=== PATIENT | female | born 1970 | race Caucasian/White ===

== ENCOUNTER → 2017-05-05 | Outpatient (CLI) | payer BC ==
--- NOTE | 2017-05-06 10:14 | USB ---
Reason for exam: additional evaluation requested from abnormal screening. History: Patient is nulliparous. US Breast Limited BILAT Right breast ultrasound demonstrates no cystic or solid lesion seen. Left breast ultrasound demonstrates no cystic or solid lesion seen. These results were verbally communicated with the patient and result sheet given to the patient on 05/05/17. ASSESSMENT: Benign, BI-RAD 2 RECOMMENDATION: Routine screening mammogram of both breasts in 1 year.
== END | disposition home or self-care (01) ==
LOC: RADUSWWP 14:51
PROVIDERS: ATTEND Family Medicine
DX: R92.8 Other abnormal and inconclusive findings on diagnostic imaging of breast (principal)

== ENCOUNTER → 2018-03-23 | Outpatient (CLI) | payer BC ==
--- NOTE | 2018-03-24 12:32 | EST ---
EXERCISE STRESS AGE: 48 SEX: F HT: 5'5" WT: 195 PROTOCOL: Saud Stress Test STAGE: I DURATION OF EXERCISE: 5:02 HEART RATE REST: 111 BLOOD PRESSURE REST: 119/77 MAXIMUM HEART RATE ACHIEVED: 161 MAXIMUM BLOOD PRESSURE: 145/64 85% MPHR: 146 100% MPHR: 172 METS: 7.0 INDICATIONS: Chest pain, family history. CLINICAL INFORMATION: STRESS DATA: Pretesting physical examination showed a heart rate of 111, pressure is 119/77 mmHg. Baseline EKG showed sinus mechanism. The patient exercised on the treadmill according to Saud protocol for a total of 5 minutes and achieved 7.0 METS. Max heart rate was 161, which is about 93% of maximum predicted heart rate. Maximum blood pressure was 145/64 mmHg. Clinically, the patient developed some shortness of breath with exertion. The EKG did show about 0.[address]-segment changes. CONCLUSION: 1. Good exercise tolerance. 2. Mild EKG changes in response to exercise, did not meet the criteria for ischemia. MMODL / IJN: [id number] /
== END | disposition home or self-care (01) ==
LOC: RADNMMAIN 10:46
PROVIDERS: ATTEND Family Medicine
DX: R94.31 Abnormal electrocardiogram [ECG] [EKG] (principal); E78.2 Mixed hyperlipidemia; E11.65 Type 2 diabetes mellitus with hyperglycemia
CPT/HCPCS: 93017

== ENCOUNTER → 2018-04-27 | Outpatient (CLI) | payer BC ==
--- NOTE | 2018-04-27 12:51 | XR ---
EXAMINATION TYPE: XR foot complete RT DATE OF EXAM: 04/27/2018 COMPARISON: NONE HISTORY: Pain TECHNIQUE: Three views are submitted. FINDINGS: The osseous structures are intact. There is no acute fracture or dislocation. Hypertrophic change and narrowing of the first MTP joint. No erosive changes. Tiny calcaneal spur noted IMPRESSION: 1. No acute process. 2. First MTP joint arthropathy.
== END ==
LOC: RADXRYALE 11:50
PROVIDERS: ATTEND Physician Assistant Medical
DX: M12.871 Other specific arthropathies, not elsewhere classified, right ankle and foot (principal)

== ENCOUNTER → 2018-05-18 | Outpatient (CLI) | payer BC ==
--- NOTE | 2018-05-21 15:12 | MM ---
Reason for exam: clinical finding. Last mammogram was performed 1 year and 1 month ago. History: Patient is nulliparous. Indicated problem(s): lump or thickening in the left breast. Physical Findings: Nurse did not find any significant physical abnormalities on exam. MG Diagnostic Mammo w CAD [facility] Bilateral CC and MLO view(s) were taken. Prior study comparison: April 28, 2017, bilateral MG diagnostic mammo w CAD [facility]. February 05, 2015, bilateral mammogram, performed at [facility]. The breast tissue is heterogeneously dense. This may lower the sensitivity of mammography. No suspicious abnormality. No significant changes when compared with prior studies. ASSESSMENT: Incomplete: need additional imaging evaluation, BI-RAD 0 RECOMMENDATION: Ultrasound of the left breast.
--- NOTE | 2018-05-21 15:15 | USB ---
History: Patient is nulliparous. US Breast Limited LT Left limited breast ultrasound including focal area of concern, retroareolar and axilla demonstrates no cystic or solid lesion see. No suspicious sonographic findings. These results were verbally communicated with the patient and result sheet given to the patient on 05/18/18. ASSESSMENT: Negative, BI-RAD 1 RECOMMENDATION: Routine screening mammogram of both breasts in 1 year.
== END | disposition home or self-care (01) ==
LOC: RADMAMWWP 08:45
PROVIDERS: ATTEND Family Medicine
DX: R92.8 Other abnormal and inconclusive findings on diagnostic imaging of breast (principal)
CPT/HCPCS: 77066

== ENCOUNTER → 2020-05-16 | Outpatient (CLI) | payer BC ==
--- NOTE | 2020-05-17 14:51 | MM ---
Reason for exam: screening (asymptomatic). Last mammogram was performed 2 years ago. History: Patient is nulliparous. Took hormonal contraceptives for 2 years. Physical Findings: A clinical breast exam by your physician is recommended on an annual basis and results should be correlated with mammographic findings. MG Screening Mammo w CAD Bilateral CC and MLO view(s) were taken. Prior study comparison: May 18, 2018, bilateral MG diagnostic mammo w CAD [facility]. April 28, 2017, bilateral MG diagnostic mammo w CAD [facility]. The breast tissue is heterogeneously dense. This may lower the sensitivity of mammography. There are benign appearing round calcifications bilaterally. There is no discrete abnormality. ASSESSMENT: Benign, BI-RAD 2 RECOMMENDATION: Routine screening mammogram of both breasts in 1 year.
== END | disposition home or self-care (01) ==
LOC: RADMAMWWP 10:10
PROVIDERS: ATTEND Family Medicine
DX: Z12.31 Encounter for screening mammogram for malignant neoplasm of breast (principal)
CPT/HCPCS: 77067

== ENCOUNTER 2020-06-19 10:29 | Day surgery (SDC) | payer BC ==
[2020-06-18 11:22] VITALS: BMI 33.6
[~2020-06-19 10:29] MED LIST: LACTATED RINGERS 1,000 ML IV SCH
[2020-06-19 10:59] VITALS: RESP 16; TEMP 97.7
[2020-06-19] MEDS ORDERED: LIDOCAINE 1% (10MG/ML) FOR IV START INTRADERMA ONE (11:14)
[2020-06-19 11:18] LABS: Glucose,Whole Blood 157 mg/dL (75-99)
[2020-06-19] MEDS ORDERED: PROPOFOL 10 MG/ML 20 ML VIAL IV ONE (12:04)
--- NOTE | 2020-06-19 12:18 | P.PCN ---
Date of Procedure: 06/19/20 Procedure(s) Performed: BRIEF HISTORY: Patient is a 50-year-old pleasant female scheduled for an elective colonoscopy as a part of screening for colorectal neoplasia. PROCEDURE PERFORMED: Colonoscopy. PREOPERATIVE DIAGNOSIS: Screening for colon cancer. IV sedation per Anesthesia. PROCEDURE: After informed consent was obtained, the patient, was brought into the endoscopy unit. IV sedation was administered by Anesthesia under continuous monitoring. Digital rectal examination was normal. Initially the Olympus CF-160 flexible video colonoscope was then inserted in the rectum, gradually advanced into the cecum without any difficulty. Careful examination was performed as the scope was gradually being withdrawn. Ileocecal valve and the appendiceal orifice were visualized and appeared normal. Prep was excellent. Mucosa of the cecum, ascending colon, transverse colon, descending colon, sigmoid colon, and rectum appeared normal. Retroflexion was performed in the rectum and no lesions were seen. The patient tolerated the procedure well. IMPRESSION: Normal-appearing colon from rectum to cecum no evidence of colorectal neoplasia. RECOMMENDATIONS: Findings of this examination were discussed with the patient as a family. She was advised to have a repeat scanning colonoscopy in 10 years.
[2020-06-19 12:45] VITALS: BP 108/73; PULSE 93
== END 2020-06-19 12:59 | disposition home or self-care (01) ==
LOC: ORWHC2ENDO 10:29
PROVIDERS: ATTEND Internal Medicine Gastroenterology
DX: Z12.11 Encounter for screening for malignant neoplasm of colon (principal); E11.9 Type 2 diabetes mellitus without complications; E78.5 Hyperlipidemia, unspecified; E07.9 Disorder of thyroid, unspecified; K21.9 Gastro-esophageal reflux disease without esophagitis; Z79.84 Long term (current) use of oral hypoglycemic drugs; Z79.890 Hormone replacement therapy; Z79.899 Other long term (current) drug therapy; Z88.1 Allergy status to other antibiotic agents
CPT/HCPCS: 81025; J2704; G0121

== ENCOUNTER → 2021-06-28 | Outpatient (CLI) | payer OTHER ==
--- NOTE | 2021-06-28 17:45 | MR ---
EXAMINATION TYPE: MR cervical spine wo con DATE OF EXAM: 06/28/2021 COMPARISON: None HISTORY: Neck pain and numbness down right arm to fingers Multiplanar multiecho imaging of the cervical spine without contrast. Normal alignment. There is posterior disc herniation at C5-6 and C6-7. Disc herniation at C5-6 is tow ards the left side. The canal is narrowed to 7.5 mm at C5-6. Canal measures 7 mm at C6-7. Cervical co rd shows no edema. The brainstem is intact. There is no compression fracture. There is no cervical pa raspinal mass. There is no evidence of focal bone destruction. IMPRESSION: Posterior mild disc herniations at C5-6 and C6-7. No significant spinal stenosis.
== END ==
LOC: RADMRIMAIN 10:54
PROVIDERS: ATTEND Family Medicine
DX: M50.223 Other cervical disc displacement at C6-C7 level (principal)
CPT/HCPCS: 72141

== ENCOUNTER → 2022-01-28 | Outpatient (CLI) | payer OTHER ==
--- NOTE | 2022-01-29 20:40 | MM ---
Reason for Exam: Screening (asymptomatic). Last mammogram was performed 1 year(s) and 8 month(s) ago. Patient History: Menarche at age 13. Patient has no children. Patient used Hormonal Contraceptives for 2 years. Risk Values: Romi 5 year model risk: 1.1%. NCI Lifetime model risk: 9.7%. Prior Study Comparison: 04/28/2017 Bilateral Diagnostic Mammogram, [facility]. 05/18/2018 Bilateral Diagnostic Mammogram, [facility]. 05/16/2020 Bilateral Screening Mammogram, [facility]. Tissue Density: The breast tissue is heterogeneously dense. This may lower the sensitivity of mammography. Findings: Analyzed By CAD. There is no suspicious group of microcalcifications or new suspicious mass in either breast. Overall Assessment: Negative, BI-RAD 1 Management: Screening Mammogram of both breasts in 1 year. 1. Patient should continue monthly self breast exams. 2. A clinical breast exam by your physician is recommended on an annual basis. 3. This exam should not preclude additional follow-up of suspicious palpable abnormalities. Electronically signed and approved by: Alida Chaney M.D. Radiologist
== END | disposition home or self-care (01) ==
LOC: RADMAMWWP 16:54
PROVIDERS: ATTEND Family Medicine
DX: Z12.31 Encounter for screening mammogram for malignant neoplasm of breast (principal)
CPT/HCPCS: 77067

== ENCOUNTER → 2024-01-31 | Outpatient (CLI) | payer OTHER ==
--- NOTE | 2024-02-07 08:35 | MM ---
Reason for Exam: Screening (asymptomatic). Last mammogram was performed 2 year(s) and 0 month(s) ago. Patient History: Menarche at age 13. Patient has no children. Perimenopausal. Patient used Hormonal Contraceptives for 2 years. Risk Values: Romi 5 year model risk: 1.2%. NCI Lifetime model risk: 9.4%. Prior Study Comparison: 05/18/2018 Bilateral Diagnostic Mammogram, [facility]. 05/16/2020 Bilateral Screening Mammogram, [facility]. 01/28/2022 Bilateral MG screening mammo w CAD, [facility]. Tissue Density: The breasts are heterogeneously dense, which may obscure small masses. Findings: Analyzed By CAD. There is no suspicious group of microcalcifications or new suspicious mass in either breast. Overall Assessment: Negative, BI-RAD 1 Management: Screening Mammogram of both breasts in 1 year. . Patient should continue monthly self-breast exams. A clinical breast exam by your physician is recommended on an annual basis. This exam should not preclude additional follow-up of suspicious palpable abnormalities. Note on Romi scores and lifetime risk: 1. A Romi score greater than 3% is considered moderate risk. If this is the case, consider specialist referral to assess eligibility for a risk reducing agent. 2. If overall lifetime risk for the development of breast cancer is 20% or higher, the patient may qualify for future screening with alternating mammogram and breast MRI. [facility], , 02/07/2024 8:32 AM. Electronically signed and approved by: Jordy Meraz M.D. Radiologis
== END | disposition home or self-care (01) ==
LOC: RADMAMWWP 10:29
PROVIDERS: ATTEND Family Medicine
DX: Z12.31 Encounter for screening mammogram for malignant neoplasm of breast
CPT/HCPCS: 77067

== ENCOUNTER → 2024-06-07 | Outpatient (CLI) | payer OTHER ==
--- NOTE | 2024-06-07 11:01 | XR ---
EXAMINATION TYPE: XR chest 2V DATE OF EXAM: 06/07/2024 10:57 AM COMPARISON: None TECHNIQUE: XR chest 2V Frontal and lateral views of the chest. CLINICAL INDICATION:Female, 54 years old with history of [id number] ACUTE BRONCHOSPASM; FINDINGS: Lungs/Pleura: There is no evidence of pleural effusion, focal consolidation, or pneumothorax. Pulmonary vascularity: Unremarkable. Heart/mediastinum: Cardiomediastinal silhouette is unremarkable. Musculoskeletal: No acute osseous pathology. IMPRESSION: No acute cardiopulmonary disease/process. [facility], , 06/07/2024 10:59 AM
== END | disposition home or self-care (01) ==
LOC: RADXRYALE 10:40
PROVIDERS: ATTEND Physician Assistant
DX: J98.01 Acute bronchospasm (principal)
CPT/HCPCS: 71046